=== PATIENT | female | born 1950 | race Caucasian/White ===

== ENCOUNTER 2020-05-19 16:02 | Outpatient (CLI) | payer MEDICARE, OTHER, SELFPAY ==
[2020-05-19 17:13] LABS: Basophils Absolute Auto 0.1 K/mm3 (0.0-0.1); Basophils Percent Auto 1.1 % (0.2-1.2); Eosinophils Absolute Auto 0.2 K/mm3 (0-0.3); Hematocrit 38.6 % (37.0-47.0); Immature Granulocyte Absolute 0.03 K/mm3 (0.00-0.031); Immature Granulocyte Percent A 0.7 % (0-0.5); Lymphocytes Absolute Auto 2.03 K/mm3 (0.9-3.2); Lymphocytes Percent Auto 45.4 % (18.3-44.2); Mean Corpuscular HGB Conc 33.7 g/dl (32-36); Mean Corpuscular Hemoglobin 29.5 pg (26-34); Mean Corpuscular Volume 87.7 fl (80-100); Mean Platelet Volume 9.8 fl (7.4-10.4); Monocytes Absolute Auto 0.5 K/mm3 (0.1-0.6); Monocytes Percent Auto 10.7 % (2.6-8.5); Neutrophils Absolute Auto 1.7 K/mm3 (1.3-6.7); Neutrophils Percent Auto 38.1 % (45.5-73.1); Platelet Count Result 320 k/mm3 (150-375); Red Cell Distribution Width 12.9 % (11.5-14.5); White Blood Count 4.5 K/mm3 (4.5-10.0)
[2020-05-19 17:25] LABS: Blood Urea Nitrogen 17 mg/dL (7-17); Calcium 8.6 mg/dL (8.4-10.2); Carbon Dioxide 29 mmol/L (22-30); Chloride 103 mmol/L (98-107); Estimated Glomerular Filt Rate > 60; Glucose 117 mg/dL (65-105); Potassium 3.6 mmol/L (3.4-5.0); Sodium 139 mmol/L (137-145)
== END 2020-05-19 16:03 | disposition home or self-care (01) ==
PROVIDERS: Visit Provider Internal Medicine Cardiovascular Disease
DX: I50.32 Chronic diastolic (congestive) heart failure (principal); I10 Essential (primary) hypertension
CPT/HCPCS: 36415; 80048; 85025

== ENCOUNTER 2024-03-18 17:11 | Outpatient (CLI) | payer OTHER, SELFPAY ==
[2024-03-18 17:54] LABS: Alanine Aminotransferase 29 U/L (6-35); Albumin Level 4.5 g/dL (3.5-5.1); Alkaline Phosphatase 114 U/L (38-126); Anion Gap 9 mmol/L (4-12); Aspartate Amino Transferase 29 U/L (14-36); Bilirubin,Total 0.7 mg/dL (0.2-1.3); Blood Urea Nitrogen 22 mg/dL (7-17); Calcium 9.4 mg/dL (8.4-10.2); Carbon Dioxide 25 mmol/L (22-30); Chloride 106 mmol/L (98-107); Estimated Glomerular Filt Rate 54; Glucose 107 mg/dL (65-110); Magnesium 2.1 mg/dL (1.6-2.3); Potassium 3.8 mmol/L (3.4-5.0); Sodium 140 mmol/L (137-145)
[2024-03-18 18:22] LABS: Iron 119 ug/dL (37-170)
[2024-03-18 18:32] LABS: Percent Iron Saturation 31 % (20-50)
== END 2024-03-18 17:12 | disposition home or self-care (01) ==
PROVIDERS: PCP Internal Medicine; Visit Provider Internal Medicine Gastroenterology
DX: K43.2 Incisional hernia without obstruction or gangrene (principal); R10.9 Unspecified abdominal pain
CPT/HCPCS: 36415; 80053; 83540; 83550; 83735; 86850; 86900; 86901

== ENCOUNTER 2024-03-19 12:26 | Outpatient (CLI) | payer OTHER, SELFPAY ==
--- NOTE | 2024-03-19 12:47 | ECG_ITS ---
SEE SCANNED COPY FOR CONFIRMED REPORT MTDD
== END 2024-03-19 12:27 | disposition home or self-care (01) ==
LOC: ANHSURGERY 12:32
PROVIDERS: PCP Internal Medicine; Visit Provider Surgery
DX: I10 Essential (primary) hypertension (principal); Z01.818 Encounter for other preprocedural examination
CPT/HCPCS: 93005

== ENCOUNTER 2024-03-20 04:35 | Day surgery (SDC) | payer OTHER, SELFPAY ==
--- NOTE | 2024-03-18 11:36 | PC.NURSE ---
Report to the Outpatient Waiting Room, entrance under the green pavilion located off [facility], at time _0600 on date __03/20/24 . Planned Procedure Time: ___729 . Time changes happen often and if your time is changed the preop area will call you the afternoon before. - You and your visitor will be asked to self-screen and do not enter if you have any COVID symptoms. - A mask is optional within the hospital at this time. Patients may have clear liquids (water, carbonated beverages, clear teas, apple juice) until 3 hours prior to surgery( 4:30AM) with a maximum of 20 ounces. - No food from midnight until time of surgery - Infants may have breast milk until 4 hours before surgery, formula 6 hours prior to surgery. - Children will be allowed to drink immediately following surgery. If applicable, please bring a bottle or sippy cup to assist with drinking. Juice, water, soda, and popsicles are readily available. For infants on formula, please bring formula the day of surgery. Pacifiers are allowed. Take the following medications with a SIP of water the morning of surgery: __INHALER IF NEEDED, DO NOT STOP ANY OF YOUR OTHER PRESCRIPTION MEDICATIONS PRIOR TO SURGERY ?EXCEPT THE FOLLOWING Medications to discontinue per physician _HOLD ALL VITAMINS AND SUPPLEMENTS 3 DAYS PRE OP ._LAST DOSE 03/17/24. PT TO CALL DR GRANADOS REGARDING ASPIRIN 650 MG Please no make-up, nail khmer, hairspray, perfume, deodorant, or body powder the day of surgery. No jewelry (including any body piercings) or valuables the day of surgery, leave them at home. Please take a shower or bath the night before, or the morning of, surgery with an antibacterial soap. Wear comfortable, loose fitting clothing. Children are encouraged to wear pajamas. - Jewelry must be removed prior to entering the operating room. Rings and piercings that are not removed may be cut off. - The hospital will not accept responsibility for valuables. - Please leave all valuables, including medications, at home the day of surgery. If you are going home after surgery, a licensed ready mix truck driver must drive you home. - NO public transportation without another adult if you receive anesthesia. - We recommend that an adult stay with you for 24 hours following discharge. - We also recommend that you do not drive, make important decision, drink alcoholic beverages, or take any drugs that were not prescribed by your health care provider for at least 24 hours after your discharge time. Follow any additional instructions given to you from your surgeon. If you or anyone in your household have experienced Covid symptoms in the past week, please notify your surgeon or the nurse liaison at the phone number below for possible testing. Telephone instructions given to __PATIENT and asked if any additional questions and then verbalized understanding. Patient advised to call surgeon office or pre surgery nurse liaison [phone] if any additional questions.
[2024-03-18 11:53] VITALS: BMI 38.1
--- NOTE | 2024-03-20 07:23 | SUR.PREOP ---
PT SURGERY CANCELLED TODAY R/T PT PO INTAKE COFFEE AND CREAM THIS AM BEFORE ARRIVAL. D/W DR. WEINSTEIN AND DR. GRANADOS.
== END 2024-03-20 07:30 | disposition home or self-care (01) ==
PROVIDERS: PCP Internal Medicine; Visit Provider Surgery
DX: K43.2 Incisional hernia without obstruction or gangrene (principal); Z53.09 Procedure and treatment not carried out because of other contraindication
CPT/HCPCS: 99211; G0463

== ENCOUNTER 2025-02-02 08:35 | Emergency (ER) | payer MEDICARE, SELFPAY ==
--- NOTE | ~2025-02-02 | XR_ITS ---
XR knee LT 3V Ordering provider: Chata Bliss NP History: . pain posterior and medial . Comparison: None. FINDINGS: BONES: No acute fracture or dislocation. JOINT SPACES: Narrowing of the medial compartment. Marginal osteophytes in the patella. SOFT TISSUES: Normal. IMPRESSION: No acute osseous abnormality left knee. Mild to moderate osteoarthritic changes. Reviewed, dictated and finalized at location A.
[2025-02-02 08:51] VITALS: BP 165/76; PULSE 68; RESP 18; TEMP 36.5; O2SAT 100
--- NOTE | 2025-02-02 08:54 | ED.GENADULT ---
HPI - General Adult General Chief complaint: Extremity Injury, Lower Stated complaint: Left Knee Pain Time Seen by Provider: 02/02/25 08:54 Source: patient Mode of arrival: ambulatory Limitations: no limitations History of Present Illness HPI narrative: 74-year-old female presents with complaint left knee. Patient has history of chronic knee pain to both knees. Reports history stress fractures related to her osteoporosis. Patient reports 2-3 falls over the past month related to right knee giving out on her and going down on to left knee. Patient wants x-ray to make sure she does not have a fracture to her left knee. Plans to schedule a follow-up appointment with her orthopedic physician. Patient ambulatory with walker. All systems reviewed and negative except as noted above. Related Data Home Medications ?Medication ?Instructions ?Recorded ?Confirmed ?Last Taken ?Type albuterol sulfate 90 mcg/actuation 1 puff inhalation BID PRN 01/18/24 03/18/24 Unknown History aerosol inhaler (Ventolin HFA) Shortness Of Breath aspirin 81 mg tablet,delayed 81 mg PO DAILY 01/18/24 03/18/24 Unknown History release (Adult Aspirin Regimen) bumetanide 1 mg tablet 3 mg PO DAILY 01/18/24 03/18/24 Unknown History bumetanide 2 mg tablet 2 mg PO DAILY 01/18/24 03/18/24 Unknown History cetirizine 10 mg capsule (Zyrtec) 20 mg PO DAILY PRN Allergy Symptoms 01/18/24 03/18/24 Unknown History coQ10 (ubiquinol) 100 mg capsule 400 mg PO DAILY 01/18/24 03/18/24 Unknown History (Qunol Hernandez CoQ10) cyclosporine 0.05 % eye drops in a 1 drp EACH EYE Q12H 01/18/24 03/18/24 Unknown History dropperette (Restasis) diphenhydramine HCl 25 mg tablet 25 mg PO TID PRN Allergy Symptoms 01/18/24 03/18/24 Unknown History (Benadryl Allergy) famotidine 10 mg tablet 10 mg PO DAILY PRN Heartburn 01/18/24 03/18/24 Unknown History guaifenesin 400 mg tablet 400 mg PO BID 01/18/24 03/18/24 Unknown History iodine 150 mcg tablet (Kelp 150 mcg PO DAILY 01/18/24 03/18/24 Unknown History (iodine)) lecithin 1,200 mg capsule 1,200 mg PO DAILY 01/18/24 03/18/24 Unknown History meclizine 25 mg tablet 25 mg PO BID PRN Vertigo 01/18/24 03/18/24 Unknown History multivitamin 1 tablet PO DAILY 01/18/24 03/18/24 Unknown History phytosterol 450 mg tablet 937 mg PO DAILY 01/18/24 03/18/24 Unknown History policosanol 10 mg tablet 20 mg PO DAILY 01/18/24 03/18/24 Unknown History pregabalin 50 mg capsule 50 mg PO MONTHLY PRN Pain 01/18/24 03/18/24 Unknown History vitamin B complex (B 1 tablet PO DAILY 01/18/24 03/18/24 Unknown History Complex-Vitamin B12 tablet) aspirin 325 mg tablet 650 mg PO DAILY 03/18/24 03/18/24 Unknown History magnesium 500 mg tablet 500 mg PO DAILY 03/18/24 03/18/24 Unknown History omega-3 fatty acids-vitamin E 1 cap PO DAILY 03/18/24 03/18/24 Unknown History 1,000 mg capsule potassium gluconate 595 mg (99 mg) 595 mg PO DAILY 03/18/24 03/18/24 Unknown History tablet Allergies Allergy/AdvReac Type Severity Reaction Status Date / Time nitrofurantoin (From Allergy Rash Verified 02/02/25 08:40 Macrobid) morphine AdvReac Intermediate N, V Verified 02/02/25 08:40 apixaban (From Eliquis) AdvReac Joint Pain Verified 02/02/25 08:40 calcium AdvReac Unknown Verified 02/02/25 08:40 nickel AdvReac Other Verified 02/02/25 08:40 rivaroxaban (From Xarelto) AdvReac Muscle Pain Verified 02/02/25 08:40 [id number] Reductase AdvReac Muscle Pain Verified 02/02/25 08:40 Inhibitor steroids Allergy Severe Weakness Uncoded 02/02/25 08:40 ERYTHROMYCIN (Generic Allergy Unknown Y Uncoded 02/02/25 08:40 Allergy) OXYCODONE/ASPIRIN (Generic Allergy Unknown Y Uncoded 02/02/25 08:40 Allergy) CODEINE (Generic Allergy) AdvReac Intermediate N, V, Uncoded 02/02/25 08:40 Review of Systems Review of Systems: CONSTITUTIONAL: Denies fever, chills, or sweats. EYES: Denies visual changes, redness, or discharge. ENT: Denies rhinorrhea, congestion, sore throat, or otalgia. CARDIOVASCULAR: Denies chest pain, palpitations, or edema. RESPIRATORY: Denies cough or dyspnea. GASTROINTESTINAL: Denies abdominal pain, nausea, vomiting, or diarrhea. GENITOURINARY: Denies dysuria or hematuria. SKIN: Denies rash or itching. MUSCULOSKELETAL: Denies back pain or myalgia. Reports left knee pain and swelling NEUROLOGIC: Denies headache, numbness, or weakness. PSYCHIATRIC: Denies anxiety or depression. All other systems reviewed are negative, except as documented in HPI. [facility], [facility] Past Medical History Medical History (Updated 02/02/25 @ 09:35 by Chata Bliss NP) Shoulder injury related to vaccine administration (SIRVA) Surgical History Surgical History (Updated 01/18/24 @ 15:44 by Yanique Cummings CMA) Hx of total hysterectomy with removal of both tubes and ovaries History of cholecystectomy Hx of tonsillectomy Hx of appendectomy Social History Social History (Updated 01/18/24 @ 14:52 by Yanique Cummings CMA) Smoking status: Never smoker Living arrangements: alone Spiritual care concerns: No Comments At time of signature, agree with nursing past medical, surgical, social and family history. There is no relevant family history pertinent to the presenting complaint. Exam Narrative: GENERAL: This is a well-nourished, well-developed patient, in no apparent distress. HEAD: normocephalic, atraumatic. EYES: PERRL. Sclera clear/white. Vision is grossly intact. EARS: External ears normal, auditory canals clear and without drainage, TMs normal without perforation. Hearing grossly intact. NOSE: External nose normal with no obvious nasal discharge, nares without redness, no rhinorrhea. THROAT: Mucous membranes moist, posterior pharynx clear. NECK: Neck supple, non-tender without lymphadenopathy, masses or thyromegaly. CARDIOVASCULAR: Regular rate and rhythm without murmurs, gallops, or rubs. RESPIRATORY: Clear to auscultation. Breath sounds equal bilaterally. No wheezes, rales, or rhonchi. SKIN: warm, Dry, intact with no suspicious lesions or rash, good texture and turgor. NEURO: awake, alert, and oriented to person, place and time. There were no obvious focal neurologic abnormalities. EXTREMITIES: difficult to assess swelling to left knee due to body habitus. Tenderness on palpation to posterior aspect. Ambulatory with slight limp. Negative anterior and posterior drawer testing. Course Course Level of Care: Express Care Visit Vital Signs Vital signs: Vital Signs Temperature 36.5 C 02/02/25 08:51 Pulse Rate 68 02/02/25 08:51 Respiratory Rate 18 02/02/25 08:51 Blood Pressure 165/76 H 02/02/25 08:51 Pulse Oximetry 100 02/02/25 08:51 Oxygen Delivery Room Air 02/02/25 08:51 Temperature 36.5 C 02/02/25 08:51 Pulse Rate 68 02/02/25 08:51 Respiratory Rate 18 02/02/25 08:51 Blood Pressure 165/76 H 02/02/25 08:51 Pulse Oximetry 100 02/02/25 08:51 Oxygen Delivery Room Air 02/02/25 08:51 Reviewed Medical Decision Making MDM Narrative Medical decision making narrative: x-ray of left knee negative for fracture. Recommend patient rest, Tylenol needed pain. Ice. Follow-up with e marketing specialist. Please be advised this is a medical document. It is intended for [id number] communication. It is written in medical language and may contain unfamiliar abbreviations or verbiage. Medical documents are intended to carry relevant information, facts as evident, and the clinical opinion of the practitioner at the time of the encounter. This report may have been done utilizing a voice recognition system. Attempts have been made to correct errors. However, there may be uncorrected grammatical, spelling, and recognition errors present. The file time of this note does not necessarily represent the time of service. Vital Signs Vital Signs: Vital Signs Temperature 36.5 C 02/02/25 08:51 Pulse Rate 68 02/02/25 08:51 Respiratory Rate 18 02/02/25 08:51 Blood Pressure 165/76 H 02/02/25 08:51 Pulse Oximetry 100 02/02/25 08:51 Oxygen Delivery Room Air 02/02/25 08:51 Temperature 36.5 C 02/02/25 08:51 Pulse Rate 68 02/02/25 08:51 Respiratory Rate 18 02/02/25 08:51 Blood Pressure 165/76 H 02/02/25 08:51 Pulse Oximetry 100 02/02/25 08:51 Oxygen Delivery Room Air 02/02/25 08:51 Imaging Data My impression: agree with radiologist Radiologist's impression: XR knee LT 3V Ordering provider: Chata Bliss NP History: . pain posterior and medial . Comparison: None. FINDINGS: BONES: No acute fracture or dislocation. JOINT SPACES: Narrowing of the medial compartment. Marginal osteophytes in the patella. SOFT TISSUES: Normal. IMPRESSION: No acute osseous abnormality left knee. Mild to moderate osteoarthritic changes. Discharge Plan Discharge Clinical Impression: Knee pain, left Qualifiers: Chronicity: chronic Qualified Code(s): M25.562 - Pain in left knee Patient Disposition: Home, Self-Care Condition: Stable Instructions: Knee Pain (ED) Additional Instructions: The x-ray of your left knee was negative for fracture. Take tylenol every 6 to 8 hours as needed for pain. Elevate when at rest. Apply ice as needed for pain. Schedule follow up appointment with your e marketing specialist. Patient Language: Ecuadorean Prescriptions: No Action bumetanide 2 mg tablet 2 mg PO DAILY Patient Comments: EVERY OTHER DAY bumetanide 1 mg tablet 3 mg PO DAILY Patient Comments: EVERY OTHER DAY famotidine 10 mg tablet 10 mg PO DAILY PRN (Reason: Heartburn) Zyrtec 10 mg capsule 20 mg PO DAILY PRN (Reason: Allergy Symptoms) guaifenesin 400 mg tablet 400 mg PO BID diphenhydramine HCl [Benadryl Allergy] 25 mg tablet 25 mg PO TID PRN (Reason: Allergy Symptoms) albuterol sulfate [Ventolin HFA] 90 mcg/actuation HFA aerosol inhaler 1 puff inhalation BID PRN (Reason: Shortness Of Breath) meclizine 25 mg tablet 25 mg PO BID PRN (Reason: Vertigo) cyclosporine [Restasis] 0.05 % dropperette 1 drp EACH EYE Q12H pregabalin 50 mg capsule 50 mg PO MONTHLY PRN (Reason: Pain) coQ10 (ubiquinol) [Qunol Hernandez CoQ10] 100 mg capsule 400 mg PO DAILY aspirin [Adult Aspirin Regimen] 81 mg tablet,delayed release (DR/EC) 81 mg PO DAILY multivitamin Tablet 1 tablet PO DAILY lecithin 1,200 mg capsule 1,200 mg PO DAILY Rx Instructions: give with meal/snack phytosterol 450 mg tablet 937 mg PO DAILY policosanol 10 mg tablet 20 mg PO DAILY vitamin B complex [B Complex-Vitamin B12] Tablet 1 tablet PO DAILY Kelp (iodine) 150 mcg tablet 150 mcg PO DAILY aspirin 325 mg Tablet 650 mg PO DAILY Fish Oil 1,000 mg Capsule 1 cap PO DAILY magnesium 500 mg Tablet 500 mg PO DAILY potassium gluconate 595 mg (99 mg) Tablet 595 mg PO DAILY Follow-up/Referrals: Ayden,Delores Dc DO [Primary Care Provider] - Time of Disposition: 09:35
== END 2025-02-02 10:00 | disposition home or self-care (01) ==
PROVIDERS: Emergency Provider Nurse Practitioner Family; PCP Internal Medicine
DX: M25.562 Pain in left knee (principal); Z79.82 Long term (current) use of aspirin
CPT/HCPCS: 73562; 99213; G0463